=== PATIENT | male | born 1975 | race Hispanic/Latino ===

== ENCOUNTER 2021-06-17 06:35 | Day surgery (SDC) | payer OTHER ==
[2021-06-07 11:51] LABS: Hematocrit 43.3 % (35.5-45.6); Hemoglobin 14.5 gm/dl (11.8-15.2); Mean Corpuscular HGB Conc 34 % (32-34); Mean Corpuscular Volume 86 fl (84-94); Platelet Count 246 K/mm3 (140-440); Red Blood Count 5.01 M/mm3 (3.65-5.03); Red Cell Distribution Width 14.2 % (13.2-15.2)
[2021-06-07 12:14] LABS: Blood Urea Nitrogen 15 mg/dL (9-20); Calcium 9.4 mg/dL (8.4-10.2); Hemolysis Index 9
[2021-06-07 12:24] LABS: BUN/Creatinine Ratio 21
[~2021-06-17 06:35] MED LIST: ACETAMINOPHEN 500 MG TAB PO SCH; CELECOXIB 200 MG CAP PO NR; GABAPENTIN 300 MG CAP PO NR; LACTATED RINGERS 1,000 ML IV SCH; MIDAZOLAM 2 MG/2 ML INJ IV NR; SCOPOLAMINE TRANSDERMAL PATCH 72 HR TD NR
[2021-06-17] MEDS ORDERED: ceFAZolin/STERILE WATER 2 GM/20 ML SYRINGE IV NR (07:00)
[2021-06-17] MEDS ORDERED: LIDOCAINE MPF (2%) 20 MG/1 ML VIAL 5 ML ONE (07:10)
[2021-06-17] MEDS ORDERED: ROCURONIUM 50 MG/5 ML INJ IV ONE (07:11)
--- NOTE | 2021-06-17 07:25 | Anesthesia Day of Surgery ---
Anesthesia Day of Surgery - Day of Surgery Patient Examined: Yes Patient H&P Reviewed: Yes Patient is NPO: Yes
--- NOTE | 2021-06-17 07:25 | Anesthesia Consultation ---
Anesthesia Consult and Med Hx Date of service: 06/17/21 - Airway Anesthetic Teeth Evaluation: Good ROM Head & Neck: Adequate Mental/Hyoid Distance: Inadequate Mallampati Class: Class I Intubation Access Assessment: Probably Good - Pulmonary Exam CTA: Yes - Cardiac Exam Cardiac Exam: RRR - Pre-Operative Health Status ASA Pre-Surgery Classification: ASA2 Proposed Anesthetic Plan: General - Pulmonary Hx Smoking: No Hx Asthma: No Hx Sleep Apnea: No (KEYSHAWN PRE SCREEN LOW RISK) - Cardiovascular System Hx Hypertension: No - Central Nervous System Hx Psychiatric Problems: No - Gastrointestinal Hx Gastroesophageal Reflux Disease: Yes (occasional ) - Hematic Hx Anemia: No - Other Systems Hx Alcohol Use: No Hx Substance Use: No Hx Cancer: No - Additional Comments Anesthesia Medical History Comments: No history of anesthetic complications
[2021-06-17] MEDS ORDERED: BUPIVACAINE/PF (0.5%) 5 MG/1 ML 30 ML VIAL INFILTRATI ONE ×2 (07:27→08:47)
[2021-06-17] MEDS ORDERED: LIDOCAINE (1%) 10 MG/1 ML VIAL 20 ML MDV ONE ×2 (07:27→11:26)
[2021-06-17] MEDS ORDERED: fentaNYL 100 MCG/2 ML INJ ONE (07:36)
[2021-06-17] MEDS ORDERED: propofoL 200 MG/20 ML VIAL IV ONE (07:36)
[2021-06-17] MEDS ORDERED: LIDOCAINE (1%) 10 MG/1 ML VIAL 20 ML MDV INFILTRATI ONE ×2 (08:48)
[2021-06-17] MEDS ORDERED: WATER FOR IRRIG STERILE 1,500 ML BOTTLE IR ONE (08:48)
[2021-06-17] MEDS ORDERED: oxyCODONE /ACETAMINOPHEN 5-325MG TAB PO PRN (09:00)
[2021-06-17] MEDS ORDERED: HYDROmorphone 1 MG/1 ML INJ IV PRN (09:00)
[2021-06-17] MEDS ORDERED: ONDANSETRON 4 MG/2 ML INJ IV PRN (09:00)
[2021-06-17] MEDS ORDERED: HYDROmorphone 1 MG/1 ML INJ ONE (09:42)
[2021-06-17] MEDS ORDERED: ONDANSETRON 4 MG/2 ML INJ ONE (10:07)
[2021-06-17] MEDS ORDERED: LACTATED RINGERS 1,000 ML ONE (10:07)
[2021-06-17] MEDS ORDERED: dexAMETHasone 20 MG/5 ML VIAL ONE (10:07)
[2021-06-17] MEDS ORDERED: NEOSTIGMINE 10MG/10 ML INJ MDV ONE (11:28)
[2021-06-17] MEDS ORDERED: GLYCOPYRROLATE 0.4 MG/2 ML INJ ONE ×2 (11:28)
[2021-06-17] MEDS ORDERED: KETOROLAC 30 MG/1 ML INJ ONE (11:29)
--- NOTE | 2021-06-17 11:36 | Short Stay Summary ---
Short Stay Documentation Date of service: 06/17/21 - History Principal diagnosis: bilateral inguinal hernia H&P: obtained from office - Allergies and Medications Current Medications: Allergies No Known Allergies Allergy (Verified 06/02/21 12:17) Home Medications Medication Instructions Recorded Confirmed Last Taken Type No Known Home Medications [No 06/02/21 06/02/21 Unknown History Reported Home Medications] Active Medications Acetaminophen (Acetaminophen 500 Mg Tab) 1,000 mg PO PREOP ISABEL Stop: 06/17/21 20:00 Last Admin: 06/17/21 06:50 Dose: 1,000 mg Documented by: Cefazolin Sodium (Cefazolin/Sterile Water 2 Gm/20 Ml Syringe) 2 gm IV PREOP NR Stop: 06/17/21 23:59 Celecoxib (Celecoxib 200 Mg Cap) 200 mg PO PREOP NR Stop: 06/17/21 23:59 Last Admin: 06/17/21 06:50 Dose: 200 mg Documented by: Gabapentin (Gabapentin 300 Mg Cap) 300 mg PO PREOP NR Stop: 06/17/21 23:59 Last Admin: 06/17/21 06:50 Dose: 300 mg Documented by: Hydromorphone HCl (Hydromorphone 1 Mg/1 Ml Inj) 0.5 mg IV Q10MIN PRN PRN Reason: Pain , Severe (7-10) Stop: 06/17/21 17:00 Lactated Ringer's (Lactated Ringers) 1,000 mls @ 100 mls/hr IV DIRECT ISABEL Stop: 06/17/21 23:59 Last Admin: 06/17/21 07:00 Dose: 100 mls/hr Documented by: Midazolam HCl (Midazolam 2 Mg/2 Ml Inj) 2 mg IV PREOP NR Stop: 06/17/21 23:59 Ondansetron HCl (Ondansetron 4 Mg/2 Ml Inj) 4 mg IV ONCE PRN PRN Reason: Nausea And Vomiting Stop: 06/17/21 17:00 Oxycodone/Acetaminophen (Oxycodone /Acetaminophen 5-325mg Tab) 1 tab PO ONCE PRN PRN Reason: Pain, Moderate (4-6) Stop: 06/17/21 18:00 Scopolamine (Scopolamine Transdermal Patch 72 Hr) 1 each TD PREOP NR Stop: 06/17/21 23:59 Last Admin: 06/17/21 06:50 Dose: 1 each Documented by: - Brief post op/procedure progress note Date of procedure: 06/17/21 Pre-op diagnosis: bilateral inguinal hernia Post-op diagnosis: same Procedure: robotic assisted bilateral inguinal hernia repair with mesh Anesthesia: GETA, local, other (b/l ilioinguinal nerve block) Findings: Large bilateral indirect inguinoscrotal hernias containing nonobstructed bowel Surgeon: KEILA FONG Estimated blood loss: minimal Pathology: none Condition: stable - Hospital course Hospital course: Pt observed in PACU and discharged to home in stable condition when criteria met Short Stay Discharge Plan Activity: other (no heavy lifting) Diet: regular Wound: open to air, per your surgeon's advice Additional Instructions: see printed discharge instructions Follow up with: PRIMARY CARE, [Primary Care Provider] - 7 Days KEILA FONG DO [Staff Physician] - 14 Days Prescriptions: Gabapentin 300 mg PO BID #6 capsule Ibuprofen [Motrin 800 MG tab] 800 mg PO Q8HR PRN #30 tablet PRN Reason: Pain, Moderate (4-6) oxyCODONE /ACETAMINOPHEN [Percocet 5/325 mg] 1 tab PO Q6H PRN #30 tablet PRN Reason: Pain , Severe (7-10)
[2021-06-17 13:26] VITALS: BP 123/79
--- NOTE | 2021-06-17 14:48 | Post Anesthesia Evaluation ---
- Post Anesthesia Evaluation Patient Participated: Yes Airway Patent: Yes Stable Respiratory Function: Yes Nausea/Vomiting: No Temp > 96.8F: Yes Pain Manageable: Yes Adequeate Hydration: Yes Anesthesia Complications: No
--- NOTE | 2021-06-17 20:45 | Operative Report ---
Operative Report Operative Report: Date of procedure: 06/17/21 Pre-op diagnosis: bilateral inguinal hernia Post-op diagnosis: same Procedure: robotic assisted bilateral inguinal hernia repair with mesh Anesthesia: GETA, local, other (b/l ilioinguinal nerve block) Findings: Large bilateral indirect inguinoscrotal hernias containing unobstructed bowel Surgeon: KEILA FONG Retail Merchandiser Technician: Indira MINA Estimated blood loss: minimal Pathology: none Condition: stable Hospital course: Pt observed in PACU and discharged to home in stable condition when criteria met HPI and indication: Patient is a 45-year-old male who was referred to the surgery clinic for a bulge in the both groins. He was found to have large reducible bilateral inguinoscrotal hernias on physical exam. He was experiencing pain due to the hernias. It was recommended that the hernias be repaired. I discussed all risk, benefits, alternatives to repair with the patient and questions were answered. The patient was agreeable. Consent obtained for robotic assisted bilateral inguinal hernia repair with mesh, possible open. Procedure in detail: Patient was identified in the preoperative area, take back to operating room placed on operative table in supine position. After anesthesia was induced both arms were tucked and all bony prominences padded appropriately. A Aguirre catheter was sterilely placed by the circulating nurse. The abdomen and b/l groins were then prepped and draped in usual sterile fashion and a timeout performed. Local anesthetic was infiltrated to skin at the intended incision sites. A supraumbilical incision was made through which a Veress needle was inserted. Veress needle positioning was confirmed using saline drop test and the abdomen insufflated to 15 mmHg. Once the abdomen was insufflated, the Veress needle was removed and a 5 mm Optiview trocar was placed as incision. The abdomen is inspected there was no underlying injury to any of the abdominal structures. Patient was placed in Trendelenburg and the pelvis examined. There were bilateral inguinal hernias containing bowel. The bowel was gently reduced with external pressure. The bowel appeared viable and unobstructed. At this point, an 8 mm right upper quadrant and left upper quadrant robotic trocars were then placed under direct visualization. The 5 mm supraumbilical trocar was removed and replaced with a 12 mm balloon trocar under direct visualization. A Ray-Toni was placed into the abdomen. The robot was then docked. A fenestrated bipolar was placed into arm #2 and a monopolar scissor in arm #1. The surgeon was then transferred to the console. First, I created a right sided preperitoneal flap. The peritoneum was scored approximately 5 to 6 cm from the hernia defect. The peritoneum was then incised from the midline to the ASIS. The preperitoneal flap was then developed in an avascular plane. I first defined the medial margin by dissecting to the pubic tubercle. The pubic tubercle was cleared of overlying fatty tissue using blunt dissection. I then created the lateral margin in a similar fashion. Great care was taken to avoid injury to any nerves. There was a indirect inguinal hernia and the hernia sac was gently reduced using blunt dissection and transecting cremasteric fibers with electrocautery. During the dissection, the cord structures were identified and protected. The cord structures and vas deferens were visualized throughout the entire dissection. The hernia sac was chronically scarred within the inguinal canal and was transected. The peritoneal flap was checked for hemostasis. Any additional cremasteric fibers that were were tenting up the peritoneum were divided. Hemostasis was carefully ensured. The hernia was repaired using a RIGHT large 3D max mesh. The mesh along with suture material was placed into the abdomen by the pediatric dental assistant. The mesh was positioned into the preperitoneal flap in the usual fashion. The medial portion of the mesh was sutured to Christophe's ligament using an interrupted 2-0 Vicryl stitch. The lateral aspect of the mesh was sutured to the anterior lateral abdominal wall using a 2-0 Vicryl interrupted stitch. The mesh was seen to lay flat in the pocket with excellent coverage. An 18F angiocath was placed through the RLQ and directly into the flap by the pediatric dental assistant. The peritoneum was then reapproximated using 3-0 running V-Loc stitch. Defect in the peritoneum was closed using a 3-0 vloc running stitch. The entirety of the mesh was covered with peritoneum. Next, I addressed the left side. The hernia was repaired in the same fashion as the right side. There was a large indirect inguinoscrotal hernia. The sac could not be fully reduced, same as the left side. It was repaired with large LEFT 3D max mesh. The robot was then undocked and the surgeon scrubbed back in. The remainder of the case was performed laparoscopically. All sharp materials along with a Ray-Toni were removed from the abdomen under direct visualization. The 12 mm port was removed and the fascia closed using a interrupted 0 Vicryl stitch. The abdomen was then slowly desufflated and the mesh was seen to lay flat in the preperitoneal space. The remaining trocars were removed. Skin incisions were once again infiltrated with local anesthetic. BILATERAL ilioinguinal nerve block was also performed with 5 cc of local anesthetic each. The skin incisions were approximated with 4-0 Monocryl subcuticular stitches and skin glue. At the end of the case all sponge, instrument, sharp counts were correct x2. Patient was awoken from anesthesia and Aguirre catheter removed. Both testicles were palpated in the scrotum in anatomic position. The patient was taken to PACU in stable condition.
== END 2021-06-17 14:15 | disposition home or self-care (01) ==
LOC: OR 06:35
PROVIDERS: ATTEND Surgery
DX: K40.20 Bilateral inguinal hernia, without obstruction or gangrene, not specified as recurrent (principal); K21.9 Gastro-esophageal reflux disease without esophagitis; Z79.899 Other long term (current) drug therapy; Z98.890 Other specified postprocedural states; Z20.822 Contact with and (suspected) exposure to COVID-19
CPT/HCPCS: 36415; 49650; 80048; 85027; C1781; J0690; J1100; J1170; J1885; J2405; J2704; J2710; J3010; J7120; S2900; U0003